=== PATIENT | male | born 1975 | race Hispanic/Latino ===

== ENCOUNTER 2018-08-22 16:13 | Emergency (ER) | payer SELFPAY ==
[2018-08-22 17:27] LABS: #Eosinphils 0.1 thou/uL (0.0-0.7); #Lymphocytes 1.7 thou/uL (1.20-3.40); #Monocytes 0.4 thou/uL (0.11-0.59); #Neutrophils 4.7 thou/uL (1.40-6.50); %Basophils 0.3 % (0.0-1.0); %Eosinophils 1.4 % (0.0-10.0); %Lymphocytes 24.9 % (21.0-51.0); %Monocytes 5.5 % (0.0-10.0); %Neutrophils 67.9 % (42.0-75.0); Hemoglobin 16.3 g/dL (14.0-18.0); Mean Corpuscular HGB CONC 33.6 g/dL (32.0-36.0); Mean Corpuscular Hemoglobin 31.1 pg (27.0-31.0); Mean Corpuscular Volume 92.5 fL (78.0-98.0); Mean Platelet Volume 8.4 fL (7.4-10.4); Platelet Count 232 thou/uL (130-400); Red Blood Cell (RBC) Count 5.23 mill/uL (4.70-6.10)
[2018-08-22 17:46] LABS: ALT (SGPT) 101 U/L (8-55); AST (SGOT) 38 U/L (5-34); Albumin 4.5 g/dL (3.5-5.0); Alkaline Phosphatase 63 U/L (40-150); Anion Gap 11 mmol/L (10-20); BUN (Urea Nitrogen) 13 mg/dL (8.9-20.6); Bilirubin, Total 0.8 mg/dL (0.2-1.2); Calc. Creatinine Clearance 0 mL/min (70-130); Calcium 9.6 mg/dL (7.8-10.44); Carbon Dioxide 27 mmol/L (22-29); Chloride 104 mmol/L (98-107); Estimated GFR-MDRD 65; Globulin 2.4 g/dL (2.4-3.5); Glucose 130 mg/dL (70-105); Lipase 11 U/L (8-78); Potassium 3.8 mmol/L (3.5-5.1); Protein, Total 6.9 g/dL (6.0-8.3); Sodium 138 mmol/L (136-145)
[2018-08-22] MEDS ORDERED: Orphenadrine Citrate 60 MG/2 ML VIAL IM SCH (18:00)
[2018-08-22] MEDS ORDERED: Ketorolac Tromethamine 30 MG/ML VIAL ONE (18:27)
== END 2018-08-22 19:27 | disposition home or self-care (01) ==
LOC: ERS 16:13
DX: M62.830 Muscle spasm of back (principal); E78.5 Hyperlipidemia, unspecified
CPT/HCPCS: 36415; 80053; 83690; 85025; 96372; J1885; J2360

== ENCOUNTER 2020-08-01 07:57 | Emergency (ER) | payer SELFPAY ==
[2020-08-01] MEDS ORDERED: Dexamethasone 4 mg/ml Vial ONE (09:30)
[2020-08-01] MEDS ORDERED: Ketorolac Tromethamine 30 MG/ML VIAL ONE (10:30)
== END 2020-08-01 10:54 | disposition home or self-care (01) ==
LOC: ERS 07:57
DX: J36 Peritonsillar abscess (principal)
CPT/HCPCS: 87081; 87430; 96372; 96374; J1100; J1885

== ENCOUNTER 2020-08-03 23:03 | Emergency (ER) | payer SELFPAY ==
[2020-08-04] MEDS ORDERED: Morphine 10 MG/ML VIAL ONE (00:12)
== END 2020-08-04 00:25 | disposition home or self-care (01) ==
LOC: ERS 23:03
DX: J36 Peritonsillar abscess (principal)
CPT/HCPCS: 96372; 99283; J2270

== ENCOUNTER 2022-01-27 20:18 | Emergency (ER) | payer SELFPAY | END 2022-01-27 22:25 | disposition home or self-care (01) | LOC: ERS 20:18 | DX: J10.1 Influenza due to other identified influenza virus with other respiratory manifestations (principal) | CPT/HCPCS: 87804; 99283 ==

== ENCOUNTER 2022-02-04 07:01 | Emergency (ER) | payer SELFPAY ==
[2022-02-04] MEDS ORDERED: Ketorolac Tromethamine 30 MG/ML VIAL ONE (09:30)
== END 2022-02-04 10:30 | disposition home or self-care (01) ==
LOC: ERS 07:01
DX: H66.91 Otitis media, unspecified, right ear (principal)
CPT/HCPCS: 96372; 99282; J1885